=== PATIENT | male | born 1955 | race Caucasian/White ===

== ENCOUNTER 2016-08-11 20:42 | Emergency (ER) | payer BC ==
[~2016-08-11] VITALS: Ht 172.7 cm; Wt 90.7 kg
[~2016-08-11 20:42] MED LIST: CIPRO500 MG PO; CIPROFLOXACIN500 MG PO; METRONIDAZOLE500 MG PO
[2016-08-11 21:08] LABS: BILIRUBIN NEGATIVE (NEGATIVE); BLOOD NEGATIVE (NEGATIVE); CLARITY CLEAR (CLEAR); COLOR YELLOW (YELLOW); GLUCOSE NEGATIVE (NEGATIVE); KETONE NEGATIVE (NEGATIVE); LEUKO ESTERASE NEGATIVE (NEGATIVE); NITRITE NEGATIVE (NEGATIVE); PH 6.5 (5.0-9.0); PROTEIN NEGATIVE (NEGATIVE); SPECIFIC GRAVITY <= 1.005 (1.005-1.030); UROBILINOGEN 0.2 E.U./dl (0.2-1.0)
[2016-08-11 21:24] LABS: URINE REFLEX COMMENT NO (NO); WBC 0-2 wbc/hpf (0-5)
[2016-08-11 21:28] LABS: BASO # 0.1 10*3/uL (0.0-0.1); BASO % 0.4 % (0.0-1.0); EOS # 0.1 10*3/uL (0.0-0.4); EOS % 1.1 % (1.0-4.0); HEMATOCRIT 42.3 % (42.0-52.0); HEMOGLOBIN 14.2 g/dl (14.0-18.0); LYMPH # 1.4 10*3/uL (1.3-4.4); LYMPH % 12.8 % (27.0-41.0); MEAN CELL VOLUME 93.4 fl (80.0-94.0); MEAN CORPUSCULAR HGB 31.3 pg (27.0-31.0); MEAN CORPUSCULAR HGB CONC 33.6 g/dl (33.0-37.0); MEAN PLATELET VOLUME 9.8 fl (9.6-12.3); MONO # 1.3 10*3/uL (0.1-1.0); MONO % 11.7 % (3.0-9.0); NEUT # 8.2 10*3/uL (2.3-7.9); NEUT % 73.7 % (47.0-73.0); PLATELET COUNT AUTOMATED 286 10*3/uL (130-400); RED BLOOD COUNT 4.53 10*6/uL (4.50-5.90); WHITE BLOOD COUNT 11.2 10*3/uL (4.8-10.8)
[2016-08-11 21:45] LABS: ALBUMIN 3.7 gm/dl (3.1-4.5); ALKALINE PHOSPHATASE 65 U/L (45-117); BILIRUBIN, TOTAL 0.7 mg/dl (0.2-1.0); BUN 13 mg/dl (7-24); C-REACTIVE PROTEIN 2.46 MG/DL (0-0.3); CARBON DIOXIDE 27 mmol/L (21-32); CHLORIDE 102 mmol/L (98-107); EST GLOM FILT AFRICAN AMERICAN > 60 ml/min; GLUCOSE 95 mg/dL (65-99); POTASSIUM 3.9 mmol/L (3.5-5.1); SGOT/AST 21 IU/L (3-35); SGPT/ALT 26 U/L (12-78); SODIUM 139 mmol/L (136-145)
[2016-08-11] MEDS ORDERED: HYDROCODONE BIT1 T11 PO (22:41)
[2016-08-11] MEDS ORDERED: CIPRO500 MG PO (22:41)
[2016-08-11] MEDS ORDERED: FLAGYL500 MG PO (22:41)
== END 2016-08-11 22:48 | disposition home or self-care (01) ==
LOC: ED 20:42
PROVIDERS: Physician Assistant
DX: K57.92 Diverticulitis of intestine, part unspecified, without perforation or abscess without bleeding (principal); Z91.041 Radiographic dye allergy status

== ENCOUNTER 2019-06-17 07:43 | Emergency (ER) | payer MEDICARE ==
[~2019-06-17] VITALS: Ht 172.7 cm; Wt 90.7 kg
[~2019-06-17 07:43] MED LIST changes: +FLAGYL500 MG PO; +HYDROCODONE BIT1 T11 PO
== END 2019-06-17 08:48 | disposition home or self-care (01) ==
LOC: ED 07:43
DX: S01.111A Laceration without foreign body of right eyelid and periocular area, initial encounter (principal); R68.84 Jaw pain; R42 Dizziness and giddiness; Z91.041 Radiographic dye allergy status; Z79.2 Long term (current) use of antibiotics; Z79.899 Other long term (current) drug therapy; Z87.891 Personal history of nicotine dependence; W55.12XA Struck by horse, initial encounter; Y93.89 Activity, other specified; Y92.89 Other specified places as the place of occurrence of the external cause; Y99.8 Other external cause status

== ENCOUNTER 2022-12-25 18:13 | Emergency (ER) | payer MEDICARE ==
[~2022-12-25] VITALS: Ht 172.7 cm; Wt 93.0 kg
[2022-12-25] MEDS ORDERED: ALPHAGAN-P 0.2%5 ML OPH (18:42)
[2022-12-25] MEDS ORDERED: ROSUVASTATIN CA10 MG PO (18:42)
[2022-12-25] MEDS ORDERED: FAMOTIDINE20 M1 PO (18:42)
[2022-12-25] MEDS ORDERED: LATANOPROST2.5 ML OP (18:43)
[2022-12-25] MEDS ORDERED: CYCLOBENZAPRINE10 MG PO (21:09)
[2022-12-25] MEDS ORDERED: NAPROSYN500 MG PO (21:09)
== END 2022-12-25 21:26 | disposition home or self-care (01) ==
LOC: ED 18:13
DX: M54.50 Low back pain, unspecified (principal); M54.6 Pain in thoracic spine; Z91.041 Radiographic dye allergy status; Z98.890 Other specified postprocedural states